=== PATIENT | female | born 1990 | race Caucasian/White ===

== ENCOUNTER 2017-04-18 08:53 | Outpatient (CLI) | payer OTHER | END 2017-04-18 08:54 | disposition home or self-care (01) | LOC: LAB.R 08:53 | PROVIDERS: ATTEND Obstetrics & Gynecology | DX: Z11.3 Encounter for screening for infections with a predominantly sexual mode of transmission (principal) | CPT/HCPCS: 87491; 87591 ==

== ENCOUNTER 2017-05-02 07:30 | Outpatient (CLI) | payer OTHER ==
--- NOTE | 2017-05-02 11:37 | Ultrasound Report ---
OB ULTRASOUND: 05/02/2017 CLINICAL INDICATION: anatomy. TECHNIQUE: Real-time scanning was performed with field marketing representative static images obtained. LAST MENSTRUAL PERIOD 12/11/2016 Clinical Age 20 weeks 2 days US Age 20 weeks 5 days EFW Hadlock 365 g EFW% Hadlock 64% Heart Rate 144 bpm EDC 09/17/2017 US EDC 09/14/2017 BPD Hadlock 21 weeks 0 days; Mean mm 49.4 HC Hadlock 20 weeks 2 days; Mean mm 178.8 AC Hadlock 20 weeks 2 days; Mean mm 150.4 FL Hadlock 21 weeks 0 days; Mean mm 35.0 Presentation variable Placental Location posterior Cervical Length 3.4 cm Amniotic Fluid 16.3 FINDINGS: There is a single viable intrauterine gestation, in variable position. heart rate is 144 BPM. The placenta is posterior, without evidence of previa. Amniotic fluid volume is normal, with an MELISA of 16.3. By size, the fetus measures 20.7 weeks (20.2 week by LMP). The following anatomic structures were visualized and appear normal: The intracranial contents, including the ventricles and posterior fossa; the lips and orbits; the spine; the heart, including 4 chamber view and outflow tracts, and diaphragm; the abdominal contents, including the stomach, the bilateral kidneys, and urinary bladder, as well as a normal 3 vessel cord insertion; 4 limbs. There is mild bilateral renal pelviectasis, measuring 4 mm on each side. No free fluid or adnexal lesion is seen. IMPRESSION: SINGLE VIABLE INTRAUTERINE GESTATION, WITH SIZE IN KEEPING WITH LMP DATING. MILD BILATERAL RENAL PELVIECTASIS, MEASURING 4 MM. THIS SHOULD BE FOLLOWED UP IN THE THIRD TRIMESTER. OTHERWISE, NORMAL ANATOMIC SURVEY. [facility]
== END 2017-05-02 07:31 | disposition home or self-care (01) ==
LOC: DI 07:30
PROVIDERS: ATTEND Obstetrics & Gynecology
DX: Z36 Encounter for antenatal screening of mother (principal); Z3A.18 18 weeks gestation of pregnancy
CPT/HCPCS: 76811

== ENCOUNTER 2017-07-01 15:05 | Outpatient (CLI) | payer OTHER ==
[2017-07-01 13:00] LABS: HCT - HEMATOCRIT 34.7 % (37.0-47.0); HGB - HEMOGLOBIN 11.9 g/dL (12.0-16.0); MEAN CORPUSCULAR HEMOGLOBIN 29.8 pg (27.0-31.0); MEAN CORPUSCULAR HGB CONC 34.3 g/dL (32.0-36.0); MEAN CORPUSCULAR VOLUME 86.9 fL (81.0-99.0); MEAN PLATELET VOLUME 10.2 fL (7.9-10.8); RED BLOOD COUNT 3.99 10^6/uL (4.20-5.40); WHITE BLOOD COUNT 10.9 x10^3/uL (4.8-10.8)
== END 2017-07-01 15:06 | disposition home or self-care (01) ==
LOC: LAB.N 15:05
PROVIDERS: ATTEND Obstetrics & Gynecology
DX: Z34.90 Encounter for supervision of normal pregnancy, unspecified, unspecified trimester (principal)
CPT/HCPCS: 36415; 82950; 86850; 86870

== ENCOUNTER 2017-07-15 09:24 | Outpatient (CLI) | payer OTHER ==
--- NOTE | 2017-07-15 11:04 | Ultrasound Report ---
LIMITED OB ULTRASOUND: 07/15/2017 COMPARISON: Ultrasound 05/02/2017. INDICATION: Followup pelviectasis. TECHNIQUE: Sonographic evaluation of , limited evaluation to include the kidneys. FINDINGS: Vertex presentation. Fundal location of the placenta. heart rate 130 beats per minute. MELISA measures 12.4 mL. The renal pelves measure 5 mm right and 7 mm left, slight interval increase. IMPRESSION: PERSISTENT RENAL PELVIECTASIS, SLIGHTLY INCREASED. FOLLOWUP IS RECOMMENDED. JOB #: [id number] EXT JOB #: [id number] [facility]
== END 2017-07-15 09:25 | disposition home or self-care (01) ==
LOC: DI 09:24
PROVIDERS: ATTEND Obstetrics & Gynecology
DX: Z3A.29 29 weeks gestation of pregnancy (principal)
CPT/HCPCS: 76815

== ENCOUNTER 2017-08-19 16:12 | Outpatient (CLI) | payer OTHER | END 2017-08-19 16:13 | disposition home or self-care (01) | LOC: LAB.R 16:12 | PROVIDERS: ATTEND Obstetrics & Gynecology | DX: Z36.85 Encounter for antenatal screening for Streptococcus B (principal) | CPT/HCPCS: 87081; 87797 ==

== ENCOUNTER 2017-09-08 11:47 | Outpatient (CLI) | payer OTHER ==
[2017-09-08 12:13] LABS: BASOPHILS % (AUTO) 0.2 %; EOSINOPHILS # (AUTO) 0.1 10^3/uL (0.0-0.7); HCT - HEMATOCRIT 34.5 % (37.0-47.0); HGB - HEMOGLOBIN 11.7 g/dL (12.0-16.0); LYMPHOCYTES # (AUTO) 1.5 10^3/uL (1.5-3.5); LYMPHOCYTES % (AUTO) 12.9 %; MEAN CORPUSCULAR HEMOGLOBIN 28.1 pg (27.0-31.0); MEAN CORPUSCULAR VOLUME 82.8 fL (81.0-99.0); MEAN PLATELET VOLUME 9.6 fL (7.9-10.8); MONOCYTES % (AUTO) 8.2 %; NEUTROPHILS # (AUTO) 9.2 10^3/uL (1.5-6.6); NEUTROPHILS % (AUTO) 77.7 %; RED BLOOD COUNT 4.17 10^6/uL (4.20-5.40); RED CELL DISTRIBUTION WIDTH 13.8 % (12.0-15.0); UNCORRECTED WHITE BLOOD COUNT 11.8 x10^3/uL; WHITE BLOOD COUNT 11.8 x10^3/uL (4.8-10.8)
== END 2017-09-08 11:48 | disposition home or self-care (01) ==
LOC: LAB 11:47
PROVIDERS: ATTEND Obstetrics & Gynecology
DX: O34.219 Maternal care for unspecified type scar from previous cesarean delivery (principal)
CPT/HCPCS: 36415; 85025; 86850; 86870; 86900; 86901

== ENCOUNTER 2017-09-10 05:29 | Inpatient (IN) | payer OTHER ==
--- NOTE | 2017-09-08 15:49 | HISTORY & PHYSICAL EXAMINATION ---
DATE OF VISIT: 09/10/2017 INDICATION: A 26-year-old G3, P1-0-1-1 with a 39 and 0/7 week intrauterine . EDC is 09/17/2017, which is consistent with 18-week ultrasound. HISTORY OF PRESENT ILLNESS: Michelle presents today for her scheduled preop visit. She is scheduled for 09/10/2017, repeat delivery. I have seen Michelle throughout this and learned that she had a primary delivery with her first child, Nayely, secondary to failure to dilate beyond 8 cm. Michelle' s has only been remarkable for mild bilateral pelviectasis of 4 mm seen on her anatomical survey at 20 weeks, which did slightly increase at about 29 weeks with a right pelvis measuring 5 mm and left 7 mm. Michelle did receive her RhoGAM at 29 weeks gestation. Michelle states that she is doing well and is excited to get delivered. She states that the baby boy is moving well. Denies any vaginal bleeding, contractions or loss of fluid. PAST MEDICAL HISTORY: None. PAST SURGICAL HISTORY: 1. 1999, Tonsillectomy. 2. 2014, delivery for daughter Nayely secondary to failure to dilate and arrested at 8 cm on 05/31/2015. ALLERGIES: NO KNOWN DRUG ALLERGIES. MEDICATIONS: 1. vitamins. 2. Ranitidine 150 mg 1 tablet p.o. b.i.d. p.r.n. SOCIAL HISTORY: She denies any current tobacco, alcohol or illicit drug use. Michelle's is Ravi and they have a 2-year-old daughter Nayely. This is a male with anticipated name of Irwin. Michelle's choice of cloth shrinking supervisor is Dr. Iris Plascencia. She does intend to breast feed and will have a spinal for pain control. Her pharmacy of choice is [facility] in [place]. PAST SURGICAL HISTORY: 1. Spontaneous . 2. One term delivery secondary to failure to dilate. PAST GYNECOLOGICAL HISTORY: She denies any abnormal Pap smears or sexually transmitted diseases. FAMILY HISTORY: There is no female carcinoma. REVIEW OF SYSTEMS: Negative unless otherwise stated. PHYSICAL EXAMINATION: VITAL SIGNS: Height is 64 inches, blood pressure 132/72. Weight is 215 pounds, BMI 36.9. Michelle has gained 31 pounds during this . GENERAL: Michelle is a well-developed, well-nourished, female, in no apparent distress. She is alert, oriented x3. Michelle is very pleasant and easy to speak to. HEENT: Within normal limits. HEART: Rate is regular. No murmurs or rubs. LUNGS: Lungs are clear to auscultation bilaterally. ABDOMEN: Gravid, nontender. She does have a keloid Pfannenstiel skin incision. Baby is vertex by ultrasound. LABORATORY DATA: Reveal she is A negative. Chlamydia and gonorrhea negative, HIV negative, hepatitis B surface antigen negative, rubella immune, RPR nonreactive, 1 hour GTT is 101. GBS is positive, her 20-week anatomical survey is consistent with dates and within normal limits. Placenta is noted to be posterior cervical length 3.4 cm. Amniotic fluid index is 16.3. ASSESSMENT: 1. 26-year-old G3, P1-0-1-1 with a 39 and 0/7 week intrauterine . 2. Prior delivery x1 secondary to failure to dilate. 3. Status post RhoGAM on 07/08/2017. 4. GBS positive. PLAN: 1. We will proceed to a scheduled repeat delivery on 09/10/2017. 2. Anticipate giving Michelle Ancef 2 grams IV for postop cellulitis prophylaxis. 3. Michelle will get her CBC and a type and screen in preparation for surgery on Friday. 4. Anticipate cutting the umbilical cord long, so that Ravi can cut the cord as well. 5. Prescriptions for ibuprofen, Tylenol and Colace have been faxed to [facility] in [place], [place]. Handwritten prescription for Dilaudid has been given to Michelle as she stated that she felt nauseated with Percocet in the past. 6. Anticipate giving Michelle a Prevena wound VAC for her postoperative care. Michelle to return to see us in 1 week for removal of the wound VAC. CC: Elvira Pérez TD: 09/08/2017 13:35 MTDD
[2017-09-10] MEDS ORDERED: LACTATED RINGERS 500 ML IV SCH (05:30)
[2017-09-10] MEDS ORDERED: LACTATED RINGERS 1,000 ML IV SCH (06:00)
[2017-09-10] MEDS ORDERED: ceFAZolin 2 GM/50 ML 2 GM/50 ML BAG IV SCH (06:30)
[2017-09-10] MEDS ORDERED: CITRIC ACID/SODIUM CITRATE 15 ML UDC PO SCH (07:15)
[2017-09-10] MEDS ORDERED: LACTATED RINGERS 300 ML IV ONE (09:00)
[2017-09-10] MEDS ORDERED: SODIUM CHLORIDE FLUSH 0.9% 10 ML SYRINGE IVP PRN ×2 (09:00→10:00)
[2017-09-10] MEDS ORDERED: NALBUPHINE 20 MG/ML AMP IVP PRN (09:20)
[2017-09-10] MEDS ORDERED: ONDANSETRON 4 MG/2 ML VIAL IVP PRN ×2 (09:20→10:31)
[2017-09-10] MEDS ORDERED: METOCLOPRAMIDE 10 MG/2 ML VIAL IVP PRN (09:20)
[2017-09-10] MEDS ORDERED: diphenhydrAMINE INJ 50 MG/ML VIAL IV PRN (09:20)
[2017-09-10] MEDS ORDERED: LACTATED RINGERS 1,000 ML IV ONE ×2 (09:27→09:56)
[2017-09-10] MEDS ORDERED: MORPHINE PF 5 MG/10 ML AMP EP ONE (09:40)
[2017-09-10] MEDS ORDERED: ePHEDrine 50 MG/ML VIAL IVP ONE (09:40)
[2017-09-10] MEDS ORDERED: KETOROLAC 30 MG/ML VIAL IVP ONE (09:40)
[2017-09-10] MEDS ORDERED: ONDANSETRON 4 MG/2 ML VIAL IVP ONE (09:40)
[2017-09-10] MEDS ORDERED: OXYTOCIN/SODIUM CHLORIDE 250 ML IV ONE (10:31)
[2017-09-10] MEDS ORDERED: diphenhydrAMINE 25 MG CAPSULE PO PRN (10:31)
[2017-09-10] MEDS ORDERED: MAGNESIUM HYDROXIDE 2,400 MG/30 ML UDC PO PRN (10:31)
--- NOTE | 2017-09-10 10:45 | OPERATIVE REPORT ---
Operative Report - General Admit Date: 09/10/17 - Other Other Information/Narrative: Date of Operation: 09/10/2017 Surgeon: Marti Ledesma DO FACOG Bookstore Manager: NATHANIEL Espinal Construction Laborer: Rajan Cortez CRNA Anesthesia: Spinal Pre-Op Dx: 1. 26 yo with a 39w0d IUP 2. Prior CD x 1 Post-op Dx: 1. 26 yo with a 39w0d IUP 2. Prior CD x 1 Procedure: Repeat delivery via low transverse incision Findings: Viable male in VTX presentation, "Irwin." Apgars 9/9. Normal uterus, ovaries and fallopian tubes. Keloid Pfannensteil scar. Specimens: 1. Placenta (not sent to pathology) 2. Cord blood EBL: 900 mL Drains: 1. Mcmanus catheter to gravity 2. Prevena wound vacuum Complications: None Dictation number: [id number]
--- NOTE | 2017-09-10 11:45 | OPERATIVE REPORT ---
DATE OF SURGERY: 09/10/2017 SURGEON: Marti Ledesma DO, FACOG LAWN MOWER: TATY Espinal. ORNAMENTAL PAINTER: Fortino Cortez CRNA ANESTHESIA: Spinal. PREOPERATIVE DIAGNOSES: 1. A 26-year-old G2, P1-0-0-1, at 39 and 0/7 week intrauterine . 2. Prior delivery x1. POSTOPERATIVE DIAGNOSES: 1. A 26-year-old G2, P1-0-0-1, at 39 and 0/7 week intrauterine . 2. Prior delivery x1. PROCEDURE: Repeat delivery via low transverse uterine incision. FINDINGS: Viable male in vertex presentation, name Irwin. 9/9 at 1 and 5 minutes respectively. Weight 3.668 kg. Normal uterus, fallopian tubes , and ovaries. Keloid Pfannenstiel scar. SPECIMENS: 1. Placenta, to medical waste. 2. Cord blood. ESTIMATED BLOOD LOSS: 900 mL DRAINS: 1. Mcmanus catheter to gravity. 2. Prevena wound vacuum. COMPLICATIONS: None. BRIEF HISTORY: The patient is a patient of [facility] with whom we have been seeing throughout her entire course. This has essentially been unremarkable. Michelle did receive RhoGAM at about 28 weeks' gestation. Michelle had a prior delivery secondary to failure to dilate beyond 8 cm. I recommended Michelle to undergo a repeat delivery. I discussed with her the risks, benefits, alternatives, indications, expectations of a repeat delivery. Included in my discussion where the risks of hemorrhage, infection, damage to surrounding organs. With respect to the surrounding organs, this may include, but not limited to inadvertent laceration , cauterization or ligation of the adjacent intestines, ureters or bladder. Furthermore, with a repeat delivery, she most likely will need to have repeat deliveries for any more children that she may have. After all of her questions were answered to her satisfaction, she verbalizes her desire to proceed with surgery. Consent forms have been signed. OPERATION IN DETAIL Michelle was identified and consented, taken to the operating room where IV access was already in place. She was then given satisfactory spinal anesthesia. Sequential compression devices were placed on lower extremities and turned on. A Mcmanus catheter was placed in her bladder. Michelle was then prepped and draped in normal sterile fashion in dorsal supine position with leftward tilt. Skin testing was found to be satisfactory. Michelle's prior keloid Pfannenstiel scar was first removed. The incision was then carried to the underlying layer of fascia with electrocautery. The fascia was then nicked in the midline and extended laterally. Rectus muscles were then dissected off. The rectus muscles were then bluntly in the midline and the peritoneum entered bluntly as well. The incision was then extended superiorly and inferiorly. A bladder flap was then created by dissecting off of the vesicouterine peritoneum. Hysterotomy was made in the lower uterine segment. Amniotomy revealed clear fluid. With the help of fundal pressure, the infant's head delivered easily and through the hysterotomy. Nose and mouth were suctioned with a bulb syringe. Again, with the help of fundal pressure, the rest of the baby delivered through the hysterotomy. Again, the nose and mouth were suctioned with a bulb syringe. Umbilical cord was doubly clamped and cut and the was then handed off to Dr. Jolly, the on-call tearoom host. The uterus was then internally massaged and placenta delivered manually. The uterus was then delivered out of the abdomen and cleared of all clots and debris. The hysterotomy was then closed with 3 sutures of 0 Vicryl, first in a running locked fashion and then in 2 other stitches of running 0 Vicryl. Hemostasis was noted. The uterus was then returned to the abdomen and the abdomen was then copiously irrigated. The abdomen was hemostatically stable. Peritoneum was then closed with a running stitch of 2-0 Vicryl. The same stitch was used to reapproximate the rectus muscle. Fascia was then closed with 0 Vicryl in a running fashion. Several sutures of 0 Vicryl and 2-0 Vicryl were used in a running fashion as well as single interrupted stitches were used to reapproximate the Caryn's fascia. Finally, the skin was closed with 4-0 Monocryl in subcuticular fashion. Prevena wound VAC was then placed on the incision and turned on. Michelle tolerated the procedure well, and was taken back to the recovery room in stable and awake condition. She will be given routine care including around the clock acetaminophen and Celebrex. She also will be given Dilaudid. All sponge, lap, and needle counts were correct x2 as per nurse report. TD: 09/10/2017 11:43 MTDD
[2017-09-10] MEDS: SODIUM CHLORIDE FLUSH 0.9% 10 ML SYRINGE IVP SCH ×3 (11:53→21:25)
[2017-09-10] MEDS ORDERED: PROMETHAZINE INJ 6.25 MG in SODIUM CHLORIDE 0.9% 50 ML IV PRN (12:24)
[2017-09-10] MEDS ORDERED: SCOPOLAMINE PATCH TOP SCH (13:00)
[2017-09-10] MEDS: ACETAMINOPHEN 500 MG TABLET PO SCH ×2 (16:45→17:14)
[2017-09-10] MEDS: SIMETHICONE CHEW 80 MG TABLET PO SCH ×2 (18:41→18:49)
[2017-09-10] MEDS: HYDROmorphone 2 MG TABLET PO SCH ×2 (18:42→21:25)
--- NOTE | 2017-09-10 19:23 | PROVIDER PROGRESS NOTE ---
Subjective - Prog Note Date Prog Note Date: 09/10/17 Prog Note Time: 19:21 - Subjective Pt reports feeling: Improved Subjective: Patient sitting in bed holding baby Irwin. Daughter Ally sitting at the foot of the bed. Ravi sitting at bedside. Nausea and vomiting very much improved; has tolerated a sandwich. Pain controlled so far. Objective - Vital Signs/Intake & Output Vital Signs: Vital Signs x48h Temp Pulse Resp BP Pulse Ox 09/10/17 18:00 16 09/10/17 17:00 16 09/10/17 16:00 97.7 F 86 16 127/77 98 09/10/17 15:00 16 09/10/17 14:00 90 16 104/64 98 09/10/17 13:30 78 16 111/60 98 09/10/17 13:00 74 16 111/60 98 09/10/17 12:30 66 16 107/54 L 98 09/10/17 12:00 65 16 113/54 L 98 09/10/17 11:30 101 H 18 122/80 98 Intake & Output: Intake & Output 09/07/17 09/08/17 09/09/17 09/10/17 23:59 23:59 23:59 23:59 Intake Total 1500 Output Total 1200 Balance 300 Assessment/Plan - Problem List (1) Status post repeat low transverse section Impression: 26 yo S/p repeat CD 09/10/2017, POD #0 Normal recovery Routine care RhoGam if indicated Continue aggressive pain control with round the clock Celebrex, acetaminophen and dilaudid Anticipate discharge to home on POD #2, 09/12/2017
[2017-09-10] MEDS: CELECOXIB 100 MG CAPSULE PO SCH (21:24)
[2017-09-10] MEDS: DOCUSATE SODIUM 100 MG CAPSULE PO SCH (21:25)
[2017-09-11] MEDS: HYDROmorphone 2 MG TABLET PO SCH ×4 (00:31→14:16)
[2017-09-11] MEDS: ACETAMINOPHEN 500 MG TABLET PO SCH ×3 (00:51→16:40)
[2017-09-11] MEDS: SODIUM CHLORIDE FLUSH 0.9% 10 ML SYRINGE IVP SCH (05:18)
[2017-09-11] MEDS: CELECOXIB 100 MG CAPSULE PO SCH (08:38)
[2017-09-11] MEDS: SIMETHICONE CHEW 80 MG TABLET PO SCH ×2 (08:38→12:29)
[2017-09-11] MEDS: DOCUSATE SODIUM 100 MG CAPSULE PO SCH (08:38)
--- NOTE | 2017-09-11 10:37 | PROVIDER PROGRESS NOTE ---
Subjective - Prog Note Date Prog Note Date: 09/11/17 Prog Note Time: 10:34 - Subjective Pt reports feeling: Improved Subjective: Patient sitting in bed with baby. lying in visitor's bed. Doing well and without complaints. Ambulating and tolerating a regular diet. Urinating without difficulty. Pain controlled with po meds. Dilaudid helping and no SE like oxycodone. Desires to go home. Objective - Vital Signs/Intake & Output Vital Signs: Vital Signs x48h Temp Pulse Resp BP Pulse Ox 09/11/17 08:12 100.2 F H 83 18 96/69 97 09/11/17 05:00 97.5 F L 66 18 111/65 97 Intake & Output: Intake & Output 09/08/17 09/09/17 09/10/17 09/11/17 23:59 23:59 23:59 23:59 Intake Total 1500 500 Output Total 2300 350 Balance -800 150 - Objective General Appearance: positive: No acute distress Eyes Bilateral: positive: Normal inspection Abdomen: positive: Non-tender (Wound vac in place and working well. Wound vac instructions given.) Assessment/Plan - Problem List (1) Status post repeat low transverse section Impression: 26 yo S/p repeat CD 09/10/2017, POD #1 Normal recovery Continue current care Discharge to home this PM Follow up next week at [facility] for removal of wound vac and in 2 weeks for a post op incision check Call for worsening fevers, chills, abdominal pain or vaginal bleeding Dictation discharge summary: [id number] Discharge Plan Disposition: 01 Home, Self Care Condition: Good Diet: Regular Activity Restrictions: Activity as Tolerated Shower Restrictions: Yes Driving Restrictions: No (Not after taking dilaudid) Weight Bearing: Full Weight No Smoking: If you smoke, Please STOP! Call for help.
--- NOTE | 2017-09-11 12:48 | DISCHARGE SUMMARY ---
DATE OF ADMISSION: 09/10/2017 DATE OF DISCHARGE: 09/11/2017 Physician: Marti Ledesma DO DIAGNOSES ON ADMISSION 1. A 26-year-old, G2, P1-0-0-1 with a 39-0/7-week intrauterine . 2. Prior delivery x1. 3. Rh negative. DIAGNOSIS ON DISCHARGE 1. A 26-year-old, G2, P2-0-0-2, status post repeat delivery on 2016. 2. Normal recovery. 3. Status post RhoGAM. BRIEF HISTORY: This is a patient of [facility] who presented for a scheduled repeat delivery on 09/10/2017. She underwent an unremarkable delivery and delivered a viable male named Irwin. Apgars were 9 and 9 at one and five minutes respectively, and baby Irwin weighed 3668 grams. EBL was 900 mL, and a Prevena wound VAC was used. There were no complications. The patient's postoperative course has been remarkable only for difficulty in controlling her nausea immediately after surgery, but otherwise she is currently doing well. She is eating a regular diet, ambulating, and tolerating the Prevena wound VAC. She is urinating without difficulty, and her pain is controlled with oral Celebrex, acetaminophen, and Dilaudid. The patient verbalizes her desire to go home today. The patient is to go home later this evening with expectations of seeing one of our providers next week for removal of Prevena wound VAC, as I will be out of the office. She already has prescriptions for ibuprofen, Tylenol, Colace, and Dilaudid. The patient is to return to see me in 2 weeks for a routine incision check. The patient is to call should she have any worsening fevers, chills, abdominal pain, or vaginal bleeding. TD: 09/11/2017 12:25 KATHY
[2017-09-11 18:40] VITALS: BP 115/70
== END 2017-09-11 18:15 | disposition home or self-care (01) | DRG 766 ==
LOC: FBP 05:29
PROVIDERS: ADMIT Obstetrics & Gynecology; ATTEND Obstetrics & Gynecology
PROC: 10D00Z1 Extraction of Products of Conception, Low, Open Approach (ICD-10-PCS; principal; 2017-09-10 09:20)
DX: O34.211 Maternal care for low transverse scar from previous cesarean delivery (principal); N85.8 Other specified noninflammatory disorders of uterus; O99.824 Streptococcus B carrier state complicating childbirth; O26.893 Other specified pregnancy related conditions, third trimester; Z3A.39 39 weeks gestation of pregnancy; Z37.0 Single live birth; Z67.11 Type A blood, Rh negative
CPT/HCPCS: 83033; 86900; 86901